=== PATIENT | male | born 1995 | race Two or more races ===

== ENCOUNTER 2019-12-29 22:41 | Emergency (ER) | payer MEDICAID, OTHER ==
[~2019-12-29] VITALS: Ht 177.8 cm; Wt 59.0 kg
--- NOTE | 2019-12-29 22:55 | NUR ---
PT BELONGINGS COLLECTED AND PLACED IN LOCKER. PT PUT INTO HOSPITAL GOWN
--- NOTE | 2019-12-29 23:28 | NUR ---
PATIENT CAME TO ER BIB RA TO BED 13, C/O SUICIDAL IDEATION. PER EMS REPORT, STATES THAT HE HAD A ROPE AROUND HIS NECK. PATIENT CURRENTLY DENIES SI/ HI. PATIENT STATES THAT HE IS VERY STRESSED WITH LIFE, AND HE IS SAD THAT HIS FINANCIAL SITUATION AND FAMILY SITUATION ARE NOT LOOKING GOOD. AAOX4. NO SOB. BREATHING EVENLY AND UNLABORED. CONNECTED TO MONITOR. SITTER AT BEDSIDE.
[2019-12-29 23:42] LABS: BASOPHILS % (AUTO) 0.5 % (0.0-2.0); EOSINOPHILS % (AUTO) 3.8 % (0.0-6.0); HEMATOCRIT 45 % (39-51); HEMOGLOBIN 14.6 g/dL (13.5-17.5); LYMPHOCYTES # (AUTO) 2.2 /CMM (0.8-4.8); LYMPHOCYTES % (AUTO) 29.2 % (20.0-44.0); MEAN CORPUSCULAR HGB CONC 33 g/dl (31.0-36.0); MEAN CORPUSCULAR VOLUME 85 fL (80-96); MONOCYTES # (AUTO) 0.7 /CMM (0.1-1.30); MONOCYTES % (AUTO) 8.7 % (2.0-12.0); NEUTROPHILS # (AUTO) 4.3 /CMM (1.8-8.9); NEUTROPHILS % (AUTO) 57.8 % (43.0-81.0); PLATELET COUNT (AUTO) 315 /CMM (150-450); RED BLOOD CELL COUNT(AUTO) 5.26 MIL/uL (4.5-6.0); WHITE BLOOD COUNT (AUTO) 7.5 K/uL (4.3-11.0)
[2019-12-29 23:53] LABS: CALCIUM, SERUM 9.3 mg/dL (8.5-10.1); CARBON DIOXIDE 30 mmol/L (21-32); CHLORIDE 105 mmol/L (98-107); GLUCOSE 76 mg/dL (74-106); POTASSIUM 4.2 mmol/L (3.5-5.1); SODIUM SERUM 140 mmol/L (136-145); UREA NITROGEN, BLOOD 9 mg/dL (7-18)
[2019-12-29 23:58] LABS: ALANINE AMINOTRANSFERASE 17 U/L (12-78); ALCOHOL, BLOOD < 3 mg/dL (0-0); ALKALINE PHOSPHATASE 51 U/L (46-116); ASPARTATE AMINOTRANSFERASE 15 U/L (15-37); BILIRUBIN,DIRECT 0.1 mg/dL (0.0-0.2); BILIRUBIN,TOTAL 0.2 mg/dL (0.2-1.0); TOTAL PROTEIN, SERUM 7.3 g/dL (6.4-8.2)
[2019-12-30] LABS: ACETAMINOPHEN 0 ug/ml (10-30); SALICYLATE 0.2 mg/dL (2.8-20.0)
[2019-12-30] MEDS ORDERED: LORAZEPAM 1 MG TABLET PO ONE (00:30)
[2019-12-30] MEDS ORDERED: LORAZEPAM 1 MG TABLET ONE (00:35)
[2019-12-30 01:23] LABS: APPEARANCE,URINE Clear (CLEAR); BILIRUBIN,URINE Negative (NEGATIVE); BLOOD, URINE Negative Ery/uL (NEGATIVE); COLOR,URINE Yellow (YELLOW); KETONES,URINE Negative (NEGATIVE); LEUKOCYTE ESTERASE ,URINE Negative (NEGATIVE); NITRITE, URINE Negative (NEGATIVE); PH,URINE 6.5 (5.0-8.0); PROTEIN,URINE Negative (NEGATIVE); UGLUCOSE Negative (NEGATIVE); UROBILINOGEN,URINE 0.2 EU/dL (0.2)
[2019-12-30] MEDS ORDERED: ZIPRASIDONE MESYLATE 20 MG/VIAL VIAL IM ONE ×2 (01:30→01:41)
--- NOTE | 2019-12-30 02:23 | NUR ---
PATIENT IS AWAKE. AAOX4. NO SOB. BREATHING EVENLY AND UNLABORED ON ROOM AIR. PATIENT IS WATCHING TELEVISION. SITTER AT BEDSIDE.
--- NOTE | 2019-12-30 08:27 | NUR ---
social work associate at bedside for eval.
--- NOTE | 2019-12-30 08:52 | NUR ---
MILI Note: SW met with the pt at bedside and determined the pts orientation level. Pt is alert and oriented x4 (time, place, self and situation). Pt stated that he was feeling depressed and suicidal due to the situation of the current times with COVID 19. Pt stated that he had a noose around his neck as an attempt. Pt stated that he was feeling better and realized that being in the hospital is actually making him feel worse. Pt stated that he has a and a home to return to. SW stated that she would call his and inform her when he is being discharged. Pt stated that he is in the process of setting up appointments with an nail feeder and a psychiatrist. SW provided him with resources for MD follow up. Pt called his to pick him up around 9AM.
--- NOTE | 2019-12-30 09:07 | NUR ---
PATIENT A/OX4, BREATHING EVEN AND UNLABORED, NO SOB NOTED, AMBULATORY WITH STEADY GAIT. ABLE TO CALL TO PICK HIM UP. PATIENT DISCHARGED TO HOME, DISCHARGED INSTRUCTIONS PROVIDED AND VERBALIZED UNDERSTANDING. NEEDS ATTENDED. BELONGINGS GIVEN BACK TO THE PATIENT. DISCHARGED TO WAITING ROOM TO WAIT FOR .
[2019-12-30 09:09] VITALS: BP 107/76
== END 2019-12-30 09:09 | disposition home or self-care (01) ==
LOC: ER 22:42
DX: F32.9 Major depressive disorder, single episode, unspecified (principal); R45.87 Impulsiveness
CPT/HCPCS: 36415; 80048; 80076; 80305; 80307; 80329; 81001; 85025; 96372; 99285; G0480; J3486; 81000-TC